=== PATIENT | female | born 1960 | race Two or more races ===

== ENCOUNTER 2019-08-21 15:35 | Emergency (ER) | payer OTHER ==
[~2019-08-21] VITALS: Ht 154.9 cm; Wt 56.2 kg
[2019-08-21 15:48] VITALS: BP 134/82
--- NOTE | 2019-08-21 15:49 | NUR ---
ED Nurse Note: Patient walked in to ER from home due to left shoulder pain that goes to her neck. Pt slipped and fell on the floor and landed her left shoulder. Denies head injury. AAO x4, VSS at this time.
--- NOTE | 2019-08-21 16:06 | Emergency Room Report ---
History of Present Illness General Chief Complaint: Pain Source: Patient Present Illness HPI Patient is a 58-year-old female who presents after increased left-sided shoulder pain and neck pain after recent fall. 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 She states that she had slipped on some urine and fell backwards striking her left upper extremity. Reports having increased pain to the left shoulder as well as some pain to the back of her neck. Denies taking any medications for pain. 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 Allergies: Coded Allergies: No Known Allergies (Unverified , 08/21/19) COVID-19 Screening Contact w/high risk pt: No Recent Travel to affected area: No Experienced COVID-19 symptoms?: No COVID-19 Testing performed BULK FLUIDS HANDLER: No Patient History Past Medical History: see triage record Now: No Reviewed Nursing Documentation: PMH: Agreed; PSxH: Agreed Nursing Documentation-PMH Past Medical History: No Stated History Review of Systems All Other Systems: negative except mentioned in HPI Physical Exam Vital Signs Date Time Temp Pulse Resp B/P (MAP) Pulse Ox O2 Delivery O2 Flow Rate FiO2 08/21/19 15:40 98.4 76 16 134/82 (99) 97 Room Air Sp02 EP Interpretation: reviewed, normal General Appearance: normal inspection, well appearing, no apparent distress, alert, GCS 15, non-toxic Head: atraumatic ENT: normal ENT inspection, hearing grossly normal, normal voice Neck: normal inspection, full range of motion, supple, no bony tend Respiratory: normal inspection, lungs clear, normal breath sounds, no respiratory distress, no retraction, no wheezing Cardiovascular #1: regular rate, rhythm, no edema Gastrointestinal: normal inspection, normal bowel sounds, non tender, soft, no guarding, no hernia Genitourinary: no CVA tenderness Musculoskeletal: normal inspection, back normal, normal range of motion Neurologic: alert, motor strength/tone normal, outside sales executive III-XII nml as tested, oriented x3, responsive, speech normal, normal inspection Psychiatric: normal inspection, judgement/insight normal, mood/affect normal Medical Decision Making Diagnostic Impression: Primary Impression: Cervical strain, acute Additional Impressions: Fall Left shoulder strain Neck arthritis ER Course Patient presented for left shoulder pain after a fall. Differential diagnosis include was not limited to cervical strain, rotator cuff injury, contusion, radiculopathy among others. Because of complexity of patient's case imaging studies were ordered. Patient was noted to have preserved range of motion to her left shoulder without evidence of soft tissue swelling. Strength appears to be normal. Patient was placed in a sling. She was given Tylenol for pain. Patient requested coronavirus testing and was advised to follow-up as outpatient for further testing. Does not have any current symptoms. Patient was advised to contact [facility] for testing. Patient was advised to remain off of work until cleared by Worker's Compensation physician. She was given prescription for lidocaine patch as well as acetaminophen. She advised to remove sling daily. Advised to return if worse. This medical record is generated with [employer] head filter tank tender helper software. There may be some head filter tank tender helper discrepancies related to use of this software Last Vital Signs Date Time Temp Pulse Resp B/P (MAP) Pulse Ox O2 Delivery O2 Flow Rate FiO2 08/21/19 15:48 98.4 16 134/82 97 Room Air 08/21/19 15:40 76 Status: improved Disposition: HOME, SELF-CARE Condition: Stable Scripts Lidocaine Patch* (Lidoderm Patch*) 1 Each Adh..patch 1 PATCH TOPIC DAILY, #30 PATCH Patch(es) may remain in place for up to 12 hours in any 24-hour period. Prov: Artemio Fontanez MD 08/21/19 Acetaminophen* (ACETAMINOPHEN EXTRA STRENGTH*) 500 Mg Tablet 500 MG ORAL Q8H PRN for Fever/Headache/Mild Pain, #30 TAB Prov: Artemio Fontanez MD 08/21/19 Artemio Fontanez MD August 21, 2019 16:05
--- NOTE | 2019-08-21 16:32 | Diagnostic Imaging Report ---
EXAM: XR Left Shoulder Complete, 2 or More Views CLINICAL HISTORY: Left shoulder pain. TECHNIQUE: Two or more views of the left shoulder. COMPARISON: None. FINDINGS: Bones/joints: Mild hypertrophic changes left acromioclavicular joint. Mild osteoarthritic changes about the left shoulder joint. No fracture or dislocation. No joint effusion. Regional ribs are unremarkable. Soft tissues: Unremarkable. IMPRESSION: 1. Mild osteoarthritic and hypertrophic changes about the left shoulder joint. 2. No acute fracture or dislocation. 3. If there is concern for rotator cuff tendon abnormalities, magnetic resonance imaging of the left shoulder joint should be performed.
--- NOTE | 2019-08-21 16:33 | Diagnostic Imaging Report ---
EXAM: XR Cervical Spine, 2 or 3 Views CLINICAL HISTORY: Neck pain. TECHNIQUE: Frontal and lateral views of the cervical spine. COMPARISON: None. FINDINGS: Vertebrae: There is straightening and reversal of the curvature of the cervical spine suggestive of muscle spasm. No definite fracture. Normal alignment. Disc spaces: Mild to moderate to severe degenerative disc disease of the cervical spine is noted. Soft tissues: Prevertebral soft tissues are unremarkable. Other findings: The airways patent. Spinous processes are unremarkable. IMPRESSION: 1. Straightening and reversal of the curvature of the cervical spine suggestive of muscle spasm. 2. Advanced degenerative disc disease of the cervical spine. 3. Magnetic resonance imaging will provide additional information, as the
[2019-08-21] MEDS ORDERED: LIDODERM700 M1 TOPIC (17:00)
[2019-08-21] MEDS ORDERED: ACETAMINOPHEN500 M3 ORAL (17:00)
[2019-08-21 17:13] VITALS: BP 134/82
--- NOTE | 2019-08-21 17:14 | NUR ---
ED Nurse Note: Pt cleared by health care Provider for discharge. DC instructions/prescription was given and explained to pt and verbalized understanding of teachings. All medical deviecs such as ID band removed. Pt is AAO x4, ambulatory and left with all personal belongings.
== END 2019-08-21 17:13 | disposition home or self-care (01) ==
LOC: EMR 17:00
DX: S16.1XXA Strain of muscle, fascia and tendon at neck level, initial encounter (principal); M19.90 Unspecified osteoarthritis, unspecified site; S46.912A Strain of unspecified muscle, fascia and tendon at shoulder and upper arm level, left arm, initial encounter; W19.XXXA Unspecified fall, initial encounter; Y92.9 Unspecified place or not applicable
CPT/HCPCS: 72040; 99284